=== PATIENT | male | born 1975 | race African-American/Black ===

== ENCOUNTER 2016-12-04 15:21 | Emergency (ER) | payer OTHER ==
[~2016-12-04] VITALS: Wt 100.0 kg
[~2016-12-04 15:21] MED LIST: HYDR-906 PO; METO10TA92 PO; MYL80 PO; ONDA4TAB14 PO; OXYC-209 PO; PANT40TA4 PO
[2016-12-04] MEDS ORDERED: ONDANSETRON 4 MG INJ IV STA (17:30)
[2016-12-04] MEDS ORDERED: morphine 4 MG/ML VIAL IV STA (17:30)
[2016-12-04] MEDS ORDERED: SOD CHLORIDE 0.9% 1,000 ML IV STA (17:30)
[2016-12-04 17:52] LABS: BASOPHILS % 0.3 % (0.0-2.0); EOSINOPHILS # 0.1 10^3/ul (0.0-0.5); EOSINOPHILS % 0.9 % (0.0-7.0); HEMATOCRIT 45.8 % (42.0-52.0); LYMPHOCYTES # 1.7 10^3/ul (0.8-2.9); LYMPHOCYTES % 17.6 % (15.0-51.0); MEAN CORPUSCULAR HEMOGLOBIN 29.5 pg (29.0-33.0); MEAN CORPUSCULAR HGB CONC 32.8 g/dl (32.0-37.0); MEAN CORPUSCULAR VOLUME 89.8 fl (82.0-101.0); MEAN PLATELET VOLUME 6.8 fl (7.4-10.4); MONOCYTE # 0.1 10^3/ul (0.3-0.9); MONOCYTES % 0.9 % (0.0-11.0); NEUTROPHIL # 7.6 10^3/ul (1.6-7.5); NEUTROPHILS % 80.3 % (39.0-77.0); PLATELET COUNT 402 10^3/UL (140-440); RED CELL DISTRIBUTION WIDTH 17.6 % (11.5-14.5); UNCORRECTED WBC 9.4 10^3/ul (4.8-10.8); WHITE BLOOD COUNT 9.4 10^3/ul (4.8-10.8)
[2016-12-04 17:59] LABS: CONDITION 1; INR 0.99; LH ANALYZER COMMENTS 1; PROTIME 13.1 Sec (12.2-14.2)
[2016-12-04 18:01] LABS: ALBUMIN 4.5 g/dl (3.3-4.9)
[2016-12-04 18:02] LABS: POTASSIUM 4.6 mmol/L (3.5-5.1)
[2016-12-04 18:04] LABS: BILIRUBIN,INDIRECT 0.8 mg/dl (0-1.1); BILIRUBIN,TOTAL 0.8 mg/dl (0.2-1.3); CREATININE 0.92 mg/dl (0.61-1.24)
[2016-12-04 18:05] LABS: CALCIUM 9.7 mg/dl (8.4-10.2)
[2016-12-04] MEDS ORDERED: HYDROmorphONE 1 MG/ML SYG IV STA (18:36)
[2016-12-04] MEDS ORDERED: FAMO40TA52 PO (18:47)
[2016-12-04] MEDS ORDERED: ONDA4TAB8 PO (18:47)
[2016-12-04] MEDS ORDERED: IBUP-1542 PO (18:47)
[2016-12-04] MEDS ORDERED: MAG355OR14 PO (18:47)
--- NOTE | 2016-12-04 18:50 | ERD ---
ER Documentation Chief Complaint Date/Time DATE: 12/04/16 TIME: 18:49 Chief Complaint abdominal pain for the past 2 days. vomiting. no diarrhea HPI 41-year-old man presents with sharp epigastric abdominal pain for the last 2 days associated with some nausea and one episode of clear nonbloody nonbilious emesis. He has had similar episodes in the past has a history of alcoholism, alcoholic gastritis, and recurrent pancreatitis. He denies blood per rectum or melena, no chest pain or shortness of breath, no trauma, no headache or blurry vision, no fevers or chills. Patient denies diarrhea. Patient admits to recent alcohol use and drinks daily. Patient denies withdrawals. ROS All systems reviewed and are negative except as per history of present illness. Medications Home Meds Active Scripts Ibuprofen* (Motrin*) 600 Mg Tab, 600 MG PO Q8 for PAIN AND/OR INFLAMMATION, #30 TAB Prov:REYNALDO ALEMAN MD 12/04/16 Ondansetron Hcl* (Zofran*) 4 Mg Tablet, 4 MG PO Q8H Y for NAUSEA AND/OR VOMITING , #20 TAB Prov:REYNALDO ALEMAN MD 12/04/16 Famotidine* (Famotidine*) 40 Mg Tablet, 40 MG PO HS, #30 TAB Prov:REYNALDO ALEMAN MD 12/04/16 Mag Hydrox/Al Hydrox/Simeth (Maalox Advanced Suspension) 355 Ml Oral.susp, 2 TSP PO TID for PAIN, #24 OZ Prov:REYNALDO ALEMAN MD 12/04/16 Ondansetron (Ondansetron Odt) 4 Mg Tab.rapdis, 4 MG PO Q8 Y for NAUSEA AND/OR VOMITING, #30 TAB Prov:JOSESITO GOODEN NP 10/28/16 Hydrocodone/Acetaminophen ([place] 5-325 Tablet) 1 Each Tablet, 1 TAB PO Q6H Y for PAIN, #20 TAB Prov:JOSESITO GOODEN NP 10/28/16 Oxycodone HCl/Acetaminophen (Percocet 10-325 mg Tablet) 1 Each Tablet, 1 EACH PO Q8 Y for SEVERE PAIN LEVEL 7-10, #30 TAB Prov:ANGELA CASON MD 10/11/16 Pantoprazole (Protonix) 40 Mg Tabec, 40 MG PO DAILY, #30 TAB Prov:ANGELA CASON MD 10/11/16 Discontinued Scripts Simethicone* (Mylicon*) 80 Mg Tab, 80 MG PO BID, #60 TAB Prov:ANGELA CASON MD 10/11/16 Metoclopramide* (Reglan*) 10 Mg Tablet, 10 MG PO Q6H Y for NAUSEA AND OR VOMITING, #30 TAB Prov:ANGELA CASON MD 10/11/16 Allergies Allergies: Coded Allergies: No Known Allergy (Unverified , 12/04/16) PMhx/Soc Chronic recurrent abdominal pain, alcohol abuse, alcoholic gastritis, cocaine abuse, previous pancreatitis, recent MRCP which was negative for CBD stone History of Surgery: Yes (LT HEEL, LT WRIST, NOSE SX) Anesthesia Reaction: No Hx Neurological Disorder: No Hx Respiratory Disorders: No Hx Cardiac Disorders: No Hx Psychiatric Problems: Yes (ANXIETY) Hx Miscellaneous Medical Probl: Yes (PANCREATITIS, ANXIETY, ALCOHOLISM) Hx Alcohol Use: Yes (FEW DAYS AGO, UNKNOWN ) Hx Substance Use: Yes (ALCOHOL ) Hx Tobacco Use: Yes Smoking Status: Current every day smoker FmHx Family History: No diabetes Physical Exam Vitals Vital Signs Date Time Temp Pulse Resp B/P Pulse Ox O2 Delivery O2 Flow Rate FiO2 12/04/16 18:30 97.8 97 20 138/107 97 12/04/16 15:27 97.8 88 20 168/118 100 Physical Exam GENERAL: Well-developed, well-nourished, well-hydrated, in no apparent distress , looks nontoxic in appearance HEENT: Moist mucous membranes, pink conjunctiva, no cervical spine tenderness or step-off deformities, no goiter, no jaundice or icterus, extraocular movements intact without pain. No submandibular induration, and no pharyngeal erythema NEURO: Alert and oriented 3, cranial nerves II through XII intact bilaterally, pupils equal round reactive to light, no focal deficits or facial asymmetry, sensation intact distally Strength 5/5 in upper and lower extremities bilaterally CARDIAC: Regular rate and rhythm, no murmurs rubs or gallops LUNGS: Clear bilaterally no wheezing crackles or stridor ABDOMEN: Soft nontender, no guarding, no rigidity, no rebound, no psoas sign no obturator sign. Normoactive bowel sounds SKIN: Warm and dry to touch, no abrasions, contusions, or hematomas, no lacerations, no ecchymosis, no target lesions, and without ulcers EXTREMITIES: No clubbing cyanosis or edema, calves are bilaterally symmetrical, no Homans sign, no popliteal cord sign. Distal pulses equal and bilateral PSYCH: Normal affect without agitation or irritability Result Diagram: 12/04/16 1730 12/04/16 1730 Results 24 hrs Laboratory Tests Test 12/04/16 17:30 Alanine Aminotransferase (ALT/SGPT) 24IU/L Albumin 4.5g/dl Albumin/Globulin Ratio 1.00 Alkaline Phosphatase 190IU/L Anion Gap 20 Aspartate Amino Transf (AST/SGOT) 25IU/L Basophils # 0.010^3/ul Basophils % 0.3% Blood Morphology Comment Blood Urea Nitrogen 10mg/dl Calcium Level 9.7mg/dl Carbon Dioxide Level 26mmol/L Chloride Level 99mmol/L Creatinine 0.92mg/dl Direct Bilirubin 0.00mg/dl Eosinophils # 0.110^3/ul Eosinophils % 0.9% Globulin 4.50g/dl Glucose Level 122mg/dl Hematocrit 45.8% Hemoglobin 15.0g/dl INR International Normalized Ratio 0.99 Indirect Bilirubin 0.8mg/dl Lipase 383U/L Lymphocytes # 1.710^3/ul Lymphocytes % 17.6% Mean Corpuscular Hemoglobin 29.5pg Mean Corpuscular Hemoglobin Concent 32.8g/dl Mean Corpuscular Volume 89.8fl Mean Platelet Volume 6.8fl Monocytes # 0.110^3/ul Monocytes % 0.9% Neutrophils # 7.610^3/ul Neutrophils % 80.3% Nucleated Red Blood Cells # 0.010^3/ul Nucleated Red Blood Cells % 0.0/100WBC Platelet Count 97248^3/UL Potassium Level 4.6mmol/L Prothrombin Time 13.1Sec Prothrombin Time Ratio 1.0 Red Blood Count 5.1010^6/ul Red Cell Distribution Width 17.6% Sodium Level 140mmol/L Total Bilirubin 0.8mg/dl Total Protein 9.0g/dl White Blood Count 9.410^3/ul Current Medications Medications (Trade) Dose Ordered Sig/Mary Route PRN Reason Start Time Stop Time Status Last Admin Dose Admin Sodium Chloride (NS) 1,000 ml @ 1,000 mls/hr Q1H STAT IV 12/04/16 17:30 12/04/16 18:29 DC 12/04/16 17:48 Morphine Sulfate (morphine) 4 mg ONCE STAT IV 12/04/16 17:30 12/04/16 17:31 DC 12/04/16 17:47 Ondansetron HCl (Zofran Inj) 4 mg ONCE STAT IV 12/04/16 17:30 12/04/16 17:31 DC 12/04/16 17:48 Hydromorphone HCl (Dilaudid) 0.5 mg ONCE STAT IV 12/04/16 18:36 12/04/16 18:37 DC 12/04/16 18:45 Procedures/MDM An IV line was established patient was placed on nurse monitoring rhythm strip revealed a sinus rhythm at about 80 bpm with upright P and T waves. Patient was afebrile. I administered 1 L normal saline intravenously, morphine 4 mg IV, Zofran 4 mg IV with improvement. I later administered hydromorphone 0.5 mg IV 1 with complete resolution of pain. CBC was unremarkable, electrolytes are normal, liver function tests revealed mildly elevated alkaline phosphatase at 190 otherwise there were normal, coagulation profile was normal. Lipase elevated at 383. I reviewed his previous medical workups, imaging studies, and medical chart. At this level of lipase elevation he can be managed as an outpatient I recommended alcohol cessation and follow-up with his PMD as well as strict adherence to his prescriptions. Differential diagnoses considered, included but not limited to acute coronary syndrome, pulmonary embolism, aortic dissection, abdominal aortic aneurysm, sepsis, stroke, meningitis, encephalitis, pneumonia, appendicitis, cholecystitis , bowel obstruction, pyelonephritis, nephrolithiasis, cystitis, as well as metabolic, hematologic, and electrolyte abnormalities. As well as abscess, cellulitis, fractures, and dislocations. Patient feels much better at this time, and vital signs are normal, symptoms have improved. I did give strict instructions to return to the ED if symptoms continue or worsen, patient will otherwise follow-up with primary care physician. Patient understood instructions and agreed to plan. Departure Diagnosis: Primary Impression: Abdominal pain Abdominal location: epigastric Qualified Code: R10.13 - Epigastric pain Additional Impressions: Alcoholism Hypertension Hypertension type: essential hypertension Qualified Code: I10 - Essential hypertension Elevated lipase Condition: Good Patient Instructions: Abdominal Pain REYNALDO ALEMAN MD Dec 04, 2016 18:50
[2016-12-04 20:14] VITALS: BP 143/100; PULSE 80; RESP 20; TEMP 97.8
== END 2016-12-04 20:15 | disposition home or self-care (01) ==
LOC: E/R 15:21
DX: R10.13 Epigastric pain (principal); F10.20 Alcohol dependence, uncomplicated; I10 Essential (primary) hypertension; R74.8 Abnormal levels of other serum enzymes; F17.210 Nicotine dependence, cigarettes, uncomplicated; R11.2 Nausea with vomiting, unspecified; R40.2142 Coma scale, eyes open, spontaneous, at arrival to emergency department; R40.2252 Coma scale, best verbal response, oriented, at arrival to emergency department; R40.2362 Coma scale, best motor response, obeys commands, at arrival to emergency department
CPT/HCPCS: 36415; 80053; 83690; 85025; 85610; 96374; 96375; J1170; J2270; J2405; J7030; Z7502

== ENCOUNTER 2016-12-21 05:14 | Inpatient (IN) | payer OTHER ==
[~2016-12-21] VITALS: Ht 182.9 cm; Wt 96.0 kg
[~2016-12-21 05:14] MED LIST changes: +FAMO40TA52 PO; +IBUP-1542 PO; +MAG355OR14 PO; -METO10TA92 PO; -MYL80 PO; +ONDA4TAB8 PO
[2016-12-21] MEDS ORDERED: morphine 4 MG/ML VIAL IV STA ×2 (06:59→07:36)
[2016-12-21] MEDS ORDERED: ONDANSETRON 4 MG INJ IV STA (06:59)
--- NOTE | 2016-12-21 07:08 | ERD ---
ER Documentation Chief Complaint Date/Time DATE: 12/21/16 TIME: 07:05 Chief Complaint RUQ abd pain2 nhours ago, hx- pancreatitis (EDILMA CALLAHAN PA-C) HPI This 41-year-old male who presents the emergency department today complaining of abdominal pain for the past 4 hours. Patient states he has had some nausea and vomiting. States he has a history of Tegretol at. States he drinks alcohol uses marijuana as well as cocaine. He has not taken any medication for the pain stating he did not have any at home. States he has not followed up with a doctor. Denies any fevers or chills, chest pain or shortness of breath. (EDILMA CALLAHAN PA-C) ROS All systems reviewed and are negative except as per history of present illness. (EDILMA CALLAHAN PA-C) Medications Home Meds Active Scripts Ibuprofen* (Motrin*) 600 Mg Tab, 600 MG PO Q8 for PAIN AND/OR INFLAMMATION, #30 TAB Prov:REYNALDO ALEMAN MD 12/04/16 Ondansetron Hcl* (Zofran*) 4 Mg Tablet, 4 MG PO Q8H Y for NAUSEA AND/OR VOMITING , #20 TAB Prov:REYNALDO ALEMAN MD 12/04/16 Famotidine* (Famotidine*) 40 Mg Tablet, 40 MG PO HS, #30 TAB Prov:REYNALDO ALEMAN MD 12/04/16 Mag Hydrox/Al Hydrox/Simeth (Maalox Advanced Suspension) 355 Ml Oral.susp, 2 TSP PO TID for PAIN, #24 OZ Prov:REYNALDO ALEMAN MD 12/04/16 Ondansetron (Ondansetron Odt) 4 Mg Tab.rapdis, 4 MG PO Q8 Y for NAUSEA AND/OR VOMITING, #30 TAB Prov:JOSESITO GOODEN NP 10/28/16 Hydrocodone/Acetaminophen ([place] 5-325 Tablet) 1 Each Tablet, 1 TAB PO Q6H Y for PAIN, #20 TAB Prov:JOSESITO GOODEN NP 10/28/16 Oxycodone HCl/Acetaminophen (Percocet 10-325 mg Tablet) 1 Each Tablet, 1 EACH PO Q8 Y for SEVERE PAIN LEVEL 7-10, #30 TAB Prov:ANGELA CASON MD 10/11/16 Pantoprazole (Protonix) 40 Mg Tabec, 40 MG PO DAILY, #30 TAB Prov:ANGELA CASON MD 10/11/16 Allergies Allergies: Coded Allergies: No Known Allergy (Unverified , 12/04/16) PMhx/Soc History of Surgery: Yes (LT HEEL, LT WRIST, NOSE SX) Anesthesia Reaction: No Hx Neurological Disorder: No Hx Respiratory Disorders: No Hx Cardiac Disorders: No Hx Psychiatric Problems: Yes (ANXIETY) Hx Miscellaneous Medical Probl: Yes (PANCREATITIS, ANXIETY, ALCOHOLISM) Hx Alcohol Use: Yes (FEW DAYS AGO, UNKNOWN ) Hx Substance Use: Yes (ALCOHOL ) Hx Tobacco Use: Yes (EDILMA CALLAHAN PA-C) Physical Exam Vitals Vital Signs Date Time Temp Pulse Resp B/P Pulse Ox O2 Delivery O2 Flow Rate FiO2 12/21/16 05:32 98.4 109 20 132/98 98 (LYDIA SMALLWOOD) Physical Exam Const: No acute distress Head: Atraumatic Eyes: Normal Conjunctiva ENT: Normal External Ears, Nose and Mouth. Neck: Full range of motion..~ No meningismus. Resp: Clear to auscultation bilaterally Cardio: Regular rate and rhythm, no murmurs Abd: Soft, epigastric, right upper quadrant tenderness non distended. Normal bowel sounds are no right lower quadrant tenderness. No tenderness at McBurney' s. Skin: No petechiae or rashes Back: No midline or flank tenderness Ext: No cyanosis, or edema Neur: Awake and alert Psych: Normal Mood and Affect (EDILMA CALLAHAN PA-C) Result Diagram: 12/21/16 0710 12/21/16 0710 Results 24 hrs Laboratory Tests Test 12/21/16 07:05 12/21/16 07:10 Urine Bacteria FEW Urine Bilirubin 1+ Urine Clarity CLEAR Urine Color BROWN Urine Epithelial Cells MODERATE Urine Glucose NEGATIVE% Urine Hemoglobin 1+ Urine Ictotest NEGATIVE Urine Ketones 3+ Urine Leukocyte Esterase NEGATIVE Urine Microscopic RBC 0-2/HPF Urine Microscopic WBC 2-5/HPF Urine Mucus FEW Urine Nitrite NEGATIVE Urine Specific [place] >=1.030 Urine Total Protein 2+ Urine Urobilinogen 1.0 E.U./dL Urine pH 5.5 Alanine Aminotransferase (ALT/SGPT) 29IU/L Albumin 4.8g/dl Albumin/Globulin Ratio 1.02 Alkaline Phosphatase 219IU/L Anion Gap 25 Aspartate Amino Transf (AST/SGOT) 44IU/L Basophils # 0.010^3/ul Basophils % 0.1% Blood Morphology Comment Blood Urea Nitrogen 7mg/dl Calcium Level 10.0mg/dl Carbon Dioxide Level 23mmol/L Chloride Level 99mmol/L Creatinine 0.92mg/dl Direct Bilirubin 0.00mg/dl Eosinophils # 0.010^3/ul Eosinophils % 0.6% Globulin 4.70g/dl Glucose Level 125mg/dl Hematocrit 45.6% Hemoglobin 15.4g/dl Indirect Bilirubin 0.7mg/dl Lipase 902U/L Lymphocytes # 0.810^3/ul Lymphocytes % 10.3% Mean Corpuscular Hemoglobin 30.4pg Mean Corpuscular Hemoglobin Concent 33.7g/dl Mean Corpuscular Volume 90.1fl Mean Platelet Volume 7.4fl Monocytes # 0.310^3/ul Monocytes % 4.2% Neutrophils # 6.410^3/ul Neutrophils % 84.8% Nucleated Red Blood Cells # 0.010^3/ul Nucleated Red Blood Cells % 0.0/100WBC Platelet Count 26403^3/UL Potassium Level 3.7mmol/L Red Blood Count 5.0610^6/ul Red Cell Distribution Width 16.8% Sodium Level 143mmol/L Total Bilirubin 0.7mg/dl Total Protein 9.5g/dl White Blood Count 7.610^3/ul Current Medications Medications (Trade) Dose Ordered Sig/Mary Route PRN Reason Start Time Stop Time Status Last Admin Dose Admin Morphine Sulfate (morphine) 4 mg ONCE STAT IV 12/21/16 06:59 12/21/16 07:01 DC 12/21/16 07:17 Ondansetron HCl (Zofran Inj) 4 mg ONCE STAT IV 12/21/16 06:59 12/21/16 07:01 DC 12/21/16 07:17 Morphine Sulfate 4 mg 4 mg ONCE STAT IV 12/21/16 07:36 12/21/16 07:37 DC 12/21/16 07:44 Sodium Chloride (NS) 1,000 ml @ 1,000 mls/hr Q1H ONCE IV 12/21/16 08:30 12/21/16 09:29 12/21/16 08:46 Hydromorphone HCl (Dilaudid) 1 mg ONCE STAT IV 12/21/16 08:25 12/21/16 08:26 DC 12/21/16 08:47 (LYDIA SMALLWOOD) Procedures/MDM This is a 41-year-old male who presents to the emergency department today complaining of abdominal pain for the past 4 hours. Patient has a history of pancreatitis and chronic pancreatitis. He's been seen here in this emergency room 9 times in the past year for this abdominal pain. He has been seen multiple times in previous years prior to that. Given the patient's complaints and past history I obtain laboratory work as well as a right upper quadrant ultrasound. Patient has had an MRCP in the past and had a CT of the abdomen and pelvis noncontrast approximate 6 weeks ago. I do not feel the patient requires a repeat CT scan at this time. Patient does abuse cocaine and therefore did obtain an EKG. EKG read and interpreted by Dr. Smallwood. Rate [address] elevation. QT prolongation. Low suspicion of acute DC, PE, pericarditis Laboratory work shows an elevated white blood cell count. His platelets are within normal limits. He is not anemic. His alkaline phosphatase is 219. Liver functions otherwise normal. His glucose is within normal limits. Lipase is 902 UA is negative for infection. 3+ ketones. Ultrasound Symptoms at this time consistent with acute on chronic pancreatitis. Do not feel the patient requires a CT scan at this time. Patient was given Zofran and morphine here in the emergency department. Patient continued to complain of pain and was therefore given Dilaudid. He was also given IV fluids Discussed admission versus outpatient management with the patient and patient has indicated that he would like to be admitted. I discussed the patient with Dr. Smallwood and he will admit the patient. Any further documentation or orders will be placed by him or the admitting physician (EDILMA CALLAHAN PA-C) Patient seen in conjunction with MARK. Upon reevaluation, patient continues to have discomfort. Patient will require admission to the hospital for observation fluid pain control and further evaluation. (LYDIA SMALLWOOD) EDILMA CALLAHAN PA-C Dec 21, 2016 07:08 LYDIA SMALLWOOD Dec 21, 2016 09:30
[2016-12-21 07:35] LABS: BASOPHILS % 0.1 % (0.0-2.0); EOSINOPHILS % 0.6 % (0.0-7.0); HEMATOCRIT 45.6 % (42.0-52.0); HEMOGLOBIN 15.4 g/dl (14.0-18.0); LYMPHOCYTES # 0.8 10^3/ul (0.8-2.9); LYMPHOCYTES % 10.3 % (15.0-51.0); MEAN CORPUSCULAR HEMOGLOBIN 30.4 pg (29.0-33.0); MEAN CORPUSCULAR HGB CONC 33.7 g/dl (32.0-37.0); MEAN CORPUSCULAR VOLUME 90.1 fl (82.0-101.0); MEAN PLATELET VOLUME 7.4 fl (7.4-10.4); MONOCYTE # 0.3 10^3/ul (0.3-0.9); MONOCYTES % 4.2 % (0.0-11.0); NEUTROPHIL # 6.4 10^3/ul (1.6-7.5); NEUTROPHILS % 84.8 % (39.0-77.0); PLATELET COUNT 313 10^3/UL (140-440); RED BLOOD COUNT 5.06 10^6/ul (4.70-6.10); RED CELL DISTRIBUTION WIDTH 16.8 % (11.5-14.5); UNCORRECTED WBC 7.6 10^3/ul (4.8-10.8); WHITE BLOOD COUNT 7.6 10^3/ul (4.8-10.8)
[2016-12-21 07:36] LABS: CONDITION 1; LH ANALYZER COMMENTS 1
[2016-12-21 07:41] LABS: ALBUMIN 4.8 g/dl (3.3-4.9)
[2016-12-21 07:42] LABS: POTASSIUM 3.7 mmol/L (3.5-5.1)
[2016-12-21 07:44] LABS: ALBUMIN/GLOBULIN RATIO 1.02; BILIRUBIN,INDIRECT 0.7 mg/dl (0-1.1); BILIRUBIN,TOTAL 0.7 mg/dl (0.2-1.3); CREATININE 0.92 mg/dl (0.61-1.24); TOTAL PROTEIN 9.5 g/dl (6.1-8.1)
[2016-12-21 07:49] LABS: ADD UMIC YES; URINE BILIRUBIN (Dip) 1+ (NEGATIVE); URINE BLOOD (Dip) 1+ (NEGATIVE); URINE COLOR BROWN (YELLOW); URINE GLUCOSE (Dip) NEGATIVE (NEGATIVE); URINE KETONES (Dip) 3+ (NEGATIVE); URINE LEUKOCYTE ESTERASE (Dip) NEGATIVE (NEGATIVE); URINE NITRITE (Dip) NEGATIVE (NEGATIVE); URINE TOTAL PROTEIN (Dip) 2+ (NEGATIVE); URINE UROBILINOGEN (Dip) 1.0 E.U./dL (0.1-1.0)
[2016-12-21 08:21] LABS: BACTERIA,URINE FEW; MUCUS,URINE FEW; URINE RBCS 0-2 /HPF (0)
[2016-12-21 08:23] LABS: ICTOTEST NEGATIVE (NEGATIVE)
[2016-12-21] MEDS ORDERED: HYDROmorphONE 1 MG/ML SYG IV STA ×2 (08:25→10:51)
[2016-12-21] MEDS ORDERED: SOD CHLORIDE 0.9% 1,000 ML IV ONE (08:30)
--- NOTE | 2016-12-21 08:59 | RADRPT ---
PROCEDURE: US Abdomen (Right upper quadrant) CLINICAL INDICATION: Abdominal pain. TECHNIQUE: Multiple real-time longitudinal and transverse images were acquired of the patient's ri t upper quadrant utilizing a curved array transducer. COMPARISON: MRI, 10/08/2016. FINDINGS: Liver there is enlarged and demonstrates diffuse increase in parenchymal echogenicity. No focal burt er mass. Portal vein demonstrates hepatopetal flow. Gallbladder demonstrates suggestion of a possible tiny stones. There is no gallbladder wall thicken ing or pericholecystic fluid. The extrahepatic biliary system is mildly dilated. Pancreas is poorly evaluated. Right kidney demonstrates no hydronephrosis or nephrolithiasis. There is a cystic lesion in the rig ht kidney measuring up to 2.2 cm No ascites. Proximal aorta and IVC are unremarkable. MEASUREMENTS: Liver: 20.8 cm Common Duct: 0.7 cm Right Kidney: 10.6 cm IMPRESSION: Limited examination due to patient's constant movement during examination, as per technologist. Hepatomegaly with hepatic steatosis. Suggestion of tiny stones in the gallbladder. There is borderline to mild extrahepatic bile duct di latation. Recommend correlation with LFTs to exclude cholestasis. Right renal cystic lesion that cannot be confidently characterized as a simple cyst on this examinat ion. However, this lesion is not clearly identified on the prior MRI of 10/08/2016 and is of doubtf ul clinical significance. RPTAT: EE .Maikel Jane MD, Date Time Electronically viewed and signed by .Maikel Jane MD, on 12/21/2016 09:03 .C/
[2016-12-21] MEDS ORDERED: KETOROLAC 30 MG INJ IV STA (10:18)
[2016-12-21 12:00] VITALS: TEMP 98.3
[2016-12-21] MEDS ORDERED: hydrALAzine 20 MG INJ IV ONE (12:00)
[2016-12-21 13:08] VITALS: BP 189/106; PULSE 98; RESP 18
[2016-12-21 13:11] VITALS: Ht 182.9 cm; Wt 96.0 kg
[2016-12-21] MEDS ORDERED: NACL 0.9% 3 ML SYG IV SCH (13:30)
[2016-12-21] MEDS ORDERED: NITROGLYCERIN (SL) 0.4 MG TAB SL PRN (13:30)
[2016-12-21] MEDS ORDERED: NA PHOSPHATE/BIPHOS 133 ML ENEMA PR PRN (13:30)
[2016-12-21] MEDS ORDERED: morphine 2 MG INJ IV ONE (13:30)
[2016-12-21] MEDS ORDERED: hydrALAzine 20 MG INJ IV PRN (13:30)
[2016-12-21] MEDS ORDERED: LORAZEPAM 2 MG INJ IV PRN (13:30)
[2016-12-21] MEDS ORDERED: MAGNESIUM HYDROXIDE 30ML CUP PO PRN (13:30)
[2016-12-21] MEDS ORDERED: ALBUTEROL/IPRATROPIUM (NEB) 3 ML AMP HHN PRN (13:30)
[2016-12-21] MEDS ORDERED: DOCUSATE SODIUM 100 MG CAP PO PRN (13:30)
[2016-12-21] MEDS ORDERED: ONDANSETRON 4 MG INJ IV PRN (13:30)
[2016-12-21] MEDS ORDERED: ACETAMINOPHEN 325 MG TAB PO PRN (13:30)
[2016-12-21] MEDS: HYDROCODONE/APAP (5/325) TAB PO PRN (13:46)
[2016-12-21] MEDS: CHLORDIAZEPOXIDE 25 MG CAP PO SCH ×2 (13:49→20:34)
[2016-12-21] MEDS: SOD CHLORIDE 0.9% 1,000 ML IV SCH (13:56)
[2016-12-21] MEDS: HYDROmorphONE 1 MG/ML SYG IV PRN ×2 (14:14→20:17)
[2016-12-21 15:10] VITALS: BP 170/102; PULSE 84; RESP 18
[2016-12-21] MEDS: LORAZEPAM 2 MG INJ IV PRN ×2 (15:51→20:22)
--- NOTE | 2016-12-21 16:00 | HP ---
DATE OF ADMISSION: 12/21/2016 IDENTIFICATION: A 41-year-old male. CHIEF COMPLAINT: Abdominal pain. HISTORY OF PRESENT ILLNESS: A 41-year-old male with multiple admissions in the past for alcohol abu se, pancreatitis in the past, history of gallstones who presents again with abdominal pain that has been going on for the last few days. He has had some nonbilious, nonbloody nausea/vomiting symptoms . When he came in today, his lipase was again found to be elevated in the ER; this time it is 902. No dizziness or loss of consciousness. He says his last drink was also yesterday, and there is a s lillian suspicion of alcohol intoxication again. The patient was last here at our hospital from 10/08 to 10/11/2016 for acute pancreatitis secondary to alcohol use as well. PAST MEDICAL HISTORY: As stated above. ALLERGIES: NO KNOWN DRUG ALLERGIES. HOME MEDICATIONS: 1. [place] 5/325 q.6 p.r.n. 2. Motrin 600 mg q.8 hours. 3. Percocet 10/325 q.8 p.r.n. 4. Famotidine 40 mg at bedtime. 5. Maalox t.i.d. 6. Zofran 4 mg q.8 p.r.n. 7. Protonix 40 mg daily. PAST SURGICAL HISTORY: He has had a fracture repair. He has also had some kind of procedure on his gallbladder in the past, and also surgery for deviated septum. FAMILY HISTORY: Noncontributory. SOCIAL HISTORY: He says his last alcohol drink was yesterday. He has a prior history of alcohol ab use, prior history of smoking. Denies any current IV drug abuse, although he has had a history of P CP and cocaine use in the past. PHYSICAL EXAMINATION VITAL SIGNS: T-max 98.3, pulse of 84 to 101, respirations 18 to 20, blood pressure is 159 to 189 sy stolic over 110 to 106 diastolic, satting at 97% on room air. GENERAL: The patient is lying in bed complaining of abdominal pain in mild distress. HEENT: Pupils equal, round, react to light. Extraocular muscles intact. NECK: Supple, no thyromegaly. LUNGS: Clear to auscultation bilaterally. CARDIOVASCULAR: S1, S2 heard. No rubs or gallops. ABDOMEN: Mild tenderness to palpation in the epigastric area. No rebound or guarding. Otherwise s oft. Normal bowel sounds. MUSCULOSKELETAL: Normal lower extremity edema bilaterally. NEUROLOGIC: No focal deficits. LABORATORIES: The comprehensive metabolic panel is normal including normal bilirubin levels, but hi s lipase is 902. CBC is normal. U-tox is pending. IMAGING: Gallbladder ultrasound shows hepatomegaly with hepatic steatosis, possible tiny stones in the gallbladder, borderline to mild extrahepatic bile duct dilatation. ASSESSMENT AND PLAN: A 41-year-old male who once again comes in with abdominal pain secondary to al coholic pancreatitis. 1. Abdominal pain secondary to alcoholic pancreatitis. Admit him. Keep him n.p.o. Give him IV fl uids. Cautious pain control medications as well. Check TSH, A1c, and lipid panel. His LFTs are no rmal. Consider MRCP or GI consult if his symptoms worsen. 2. Alcohol intoxication. Put him on Librium with banana bag; also Ativan p.r.n. 3. Gastrointestinal prophylaxis: PPI. 4. Deep venous thrombosis prophylaxis: Heparin subcutaneously. Dictated By: JEFF BO/LEA Conf#: [id number] DID#: [id number]
[2016-12-21 16:30] VITALS: BP 152/78; PULSE 78; RESP 18
[2016-12-21] MEDS: morphine 2 MG INJ IV PRN (17:05)
[2016-12-21 20:25] VITALS: BP 171/105; RESP 18
[2016-12-21] MEDS: AL HYDROX/MG HYDROX/SIMETH 30 ML CUP PO SCH (20:34)
[2016-12-21] MEDS: HEPARIN 5,000 UNIT/0.5 ML SYG SC SCH (20:40)
[2016-12-21 23:00] VITALS: BP 145/81; PULSE 97; RESP 17
[2016-12-22] MEDS: SOD CHLORIDE 0.9% 1,000 ML IV SCH ×3 (00:26→17:00)
[2016-12-22] MEDS: morphine 2 MG INJ IV PRN ×5 (00:26→20:54)
[2016-12-22] MEDS: HYDROCODONE/APAP (5/325) TAB PO PRN (01:02)
[2016-12-22] MEDS: HYDROmorphONE 1 MG/ML SYG IV PRN ×2 (02:13→08:59)
[2016-12-22] MEDS: PANTOPRAZOLE 40 MG INJ IV SCH (05:29)
[2016-12-22 06:27] LABS: BASOPHILS % 0.3 % (0.0-2.0); EOSINOPHILS % 0.5 % (0.0-7.0); HEMATOCRIT 38.2 % (42.0-52.0); LYMPHOCYTES # 0.8 10^3/ul (0.8-2.9); LYMPHOCYTES % 13.4 % (15.0-51.0); MEAN CORPUSCULAR HGB CONC 34.1 g/dl (32.0-37.0); MEAN CORPUSCULAR VOLUME 90.9 fl (82.0-101.0); MEAN PLATELET VOLUME 7.9 fl (7.4-10.4); MONOCYTE # 0.5 10^3/ul (0.3-0.9); MONOCYTES % 8.3 % (0.0-11.0); NEUTROPHIL # 4.7 10^3/ul (1.6-7.5); NEUTROPHILS % 77.5 % (39.0-77.0); PLATELET COUNT 209 10^3/UL (140-440); RED CELL DISTRIBUTION WIDTH 16.9 % (11.5-14.5)
[2016-12-22 06:39] LABS: CONDITION 1; LH ANALYZER COMMENTS 1; POTASSIUM 3.7 mmol/L (3.5-5.1)
[2016-12-22 06:41] LABS: CREATININE 0.64 mg/dl (0.61-1.24)
[2016-12-22 06:42] LABS: CHOL/HDL RATIO 5.5 RATIO; MAGNESIUM 2.1 mg/dl (1.7-2.5); PHOSPHORUS 2.5 mg/dl (2.5-4.9)
[2016-12-22] MEDS: LORAZEPAM 2 MG INJ IV PRN (06:50)
[2016-12-22 07:06] LABS: THYROID STIMULATING HORMONE 0.568 MIU/L (0.465-4.680)
[2016-12-22 07:34] VITALS: BP 170/104; RESP 18
[2016-12-22] MEDS: AL HYDROX/MG HYDROX/SIMETH 30 ML CUP PO SCH ×3 (09:01→20:53)
[2016-12-22] MEDS: CHLORDIAZEPOXIDE 25 MG CAP PO SCH ×3 (09:02→20:53)
[2016-12-22] MEDS: MULTIVITAMINS 10 ML, THIAMINE 100 MG, FOLIC ACID 1 MG in SOD CHLORIDE 0.9% 1,000 ML IVPB SCH (09:02)
--- NOTE | 2016-12-22 09:36 | PN ---
Date/Time of Note Date/Time of Note DATE: 12/22/16 TIME: 09:33 Assessment/Plan VTE Prophylaxis VTE Prophylaxis Intervention: heparin Lines/Catheters IV Catheter Type (from Nrs): Peripheral IV Urinary Cath still in place: No Assessment/Plan Assessment/Plan A 41-year-old male who once again comes in with abdominal pain secondary to alcoholic pancreatitis. 1. Abdominal pain secondary to alcoholic pancreatitis. - continue with NPO, IVF, morphine only for pain, trend lipase 2. Alcohol intoxication. Put him on Librium with banana bag; also Ativan p.r.n. 3. Gastrointestinal prophylaxis: PPI. 4. Deep venous thrombosis prophylaxis: Heparin subcutaneously. dispo - f/u lipase levels, wean off of pain medications, social work consult. this progress note took greater than 40 minutes to complete Subjective 24 Hr Interval Summary Free Text/Dictation Patient is complaining of abdominal pain. When I arrived in the room, the patient was sleeping comfortably. I spoke to him about his medications and pain management. He understood that only morphine, not dilaudid will be given. Otherwise spoke to the nurse about the care plan. 20 minutes spent. Exam/Review of Systems Vital Signs Vitals Vital Signs Date Time Temp Pulse Resp B/P Pulse Ox O2 Delivery O2 Flow Rate FiO2 12/22/16 07:34 98.8 90 18 170/104 96 12/21/16 23:00 Room Air Intake and Output 12/21/16 12/21/16 12/22/16 15:00 23:00 07:00 Intake Total 350 ml 1100 ml Output Total 700 ml 1200 ml Balance -350 ml -100 ml Exam Gen Corina: mild distress 2/2 to abdominal pain, AAOx4 HEENT: NC/AT, PERRLA, EOMI, no pharyngeal erythema, no tonsillar exudates, no lymphadenopathy, no JVD, no carotid bruits NECK: supple, no thyromegaly THORAX: symmetrical, no obvious deformities CV: S1S2, RRR, no M/G/R Lungs: CTAB no W/C/R/R Abd: soft, NT/ND, +BS, no rebound, no guarding, neg HSM EXT: no edema, no ecchymosis, no clubbing, FROM Neuro: CN II-XII grossly intact, no focal deficits Psych: fair mood and affect Skin: C/D/I Results Result Diagram: 12/22/16 0500 12/22/16 0500 Results 24 hrs Laboratory Tests Test 12/22/16 05:00 Anion Gap 15 # Basophils # 0.0 Basophils % 0.3 Blood Morphology Comment Blood Urea Nitrogen 5 L Calcium Level 9.0 Carbon Dioxide Level 26 Chloride Level 99 Cholesterol Level 205 H Cholesterol/HDL Ratio 5.5 Creatinine 0.64 Eosinophils # 0.0 Eosinophils % 0.5 Glucose Level 120 HDL Cholesterol 37 Hematocrit 38.2 L Hemoglobin 13.0 L Hemoglobin A1c 5.3 LDL Cholesterol, Calculated 136 Lipase 924 H Lymphocytes # 0.8 Lymphocytes % 13.4 L Magnesium Level 2.1 Mean Corpuscular Hemoglobin 31.0 Mean Corpuscular Hemoglobin Concent 34.1 Mean Corpuscular Volume 90.9 Mean Platelet Volume 7.9 Monocytes # 0.5 Monocytes % 8.3 Neutrophils # 4.7 Neutrophils % 77.5 H Nucleated Red Blood Cells # 0.0 Nucleated Red Blood Cells % 0.0 Phosphorus Level 2.5 Platelet Count 209 # Potassium Level 3.7 Red Blood Count 4.20 L Red Cell Distribution Width 16.9 H Sodium Level 136 Thyroid Stimulating Hormone (TSH) 0.568 Triglycerides Level 162 H White Blood Count 6.0 # Medications Medications Current Medications Ondansetron HCl (Zofran Inj) 4 mg Q6H PRN IV NAUSEA AND/OR VOMITING; Start 12/21 at 13:30 Acetaminophen (Tylenol Tab) 650 mg Q6H PRN PO PAIN LEVEL 1-3 OR FEVER; Start at 13:30 Acetaminophen/ Hydrocodone Bitart ([place] (5/325)) 1 tab Q6H PRN PO MODERATE PAIN LEVEL 4-6 Last administered on 12/22/16 01:02; Admin Dose 1 TAB; Start 12/21 at 13:30 Morphine Sulfate (morphine) 2 mg Q4H PRN IV SEVERE PAIN LEVEL 7-10 Last administered on 12/22/16 05:29; Admin Dose 2 MG; Start 12/21/16 at 14:11 Docusate Sodium (Colace) 100 mg Q12H PRN PO CONSTIPATION; Start 12/21/16 at 13: 30 Magnesium Hydroxide (Milk Of Mag) 30 ml DAILY PRN PO CONSTIPATION; Start at 13:30 Sodium Biphosphate/ Sodium Phosphate (Fleet Enema) 133 ml DAILY PRN [place] CONSTIPATION; Start 12/21/16 at 13:30 Pantoprazole (Protonix Iv) 40 mg DAILY@06 IV Last administered on 12/22/16 05: 29; Admin Dose 40 MG; Start 12/22/16 at 06:00 Heparin Sodium (Porcine) 5000 unit 5,000 unit Q12 SC Last administered on 20:40; Admin Dose 5,000 UNIT; Start 12/21/16 at 21:00 Sodium Chloride (NS) 1,000 ml @ 100 mls/hr Q10H IV Last administered on 00:26; Admin Dose 100 MLS/HR; Start 12/21/16 at 13:21 Hydralazine HCl (Apresoline) 10 mg Q6H PRN IV ELEVATED BLOOD PRESSURE; Start at 13:30 Clonidine (Catapres) 0.1 mg Q6H PRN PO ELEVATED BLOOD PRESSURE Last administered on 12/21/16 15:09; Admin Dose 0.1 MG; Start 12/21/16 at 13:30 Nitroglycerin (Nitroglycerin (Sl Tab) 0.4 Mg) 1 tab Q5M PRN SL ANGINA; Start at 13:30 Al Hydrox/Mg Hydrox/Simethicone (Mag-Al Plus) 10 ml TID PO Last administered on 12/22/16 09:01; Admin Dose 10 ML; Start 12/21/16 at 21:00 Chlordiazepoxide 50 mg 50 mg TID PO Last administered on 12/22/16 09:02; Admin Dose 50 MG; Start 12/21/16 at 13:45 Multivitamins/ Thiamine HCl/ Folic Acid/Sodium Chloride (Mvi-12 Adult/ Vitamin B1/Folic Acid/NS) 1,011.2 ml @ 125 mls/ hr DAILY@09 IVPB Last administered on 12/22/16 09:02; Admin Dose 125 MLS/HR; Start 12/22/16 at 09:00 Hydromorphone HCl (Dilaudid) 0.5 mg Q6H PRN IV PAIN Last administered on 08:59; Admin Dose 0.5 MG; Start 12/21/16 at 14:30; Stop 12/22/16 at 13:30 Lorazepam (Ativan) 1 mg Q1H PRN IV ANXIETY Last administered on 12/22/16t 06:50 ; Admin Dose 1 MG; Start 12/21/16 at 14:30 SHELTON REYES MD Dec 22, 2016 09:36
[2016-12-22] MEDS: HEPARIN 5,000 UNIT/0.5 ML SYG SC SCH ×2 (09:37→20:53)
[2016-12-22 20:00] VITALS: BP 144/79; PULSE 95; RESP 18
[2016-12-23] MEDS: morphine 2 MG INJ IV PRN ×3 (00:58→08:58)
[2016-12-23] MEDS: PANTOPRAZOLE 40 MG INJ IV SCH (05:00)
[2016-12-23] MEDS: SOD CHLORIDE 0.9% 1,000 ML IV SCH ×3 (05:00→18:03)
[2016-12-23 05:49] LABS: BASOPHILS % 0.3 % (0.0-2.0); EOSINOPHILS # 0.1 10^3/ul (0.0-0.5); EOSINOPHILS % 1.8 % (0.0-7.0); HEMATOCRIT 34.7 % (42.0-52.0); HEMOGLOBIN 11.9 g/dl (14.0-18.0); LYMPHOCYTES # 1.6 10^3/ul (0.8-2.9); LYMPHOCYTES % 28.5 % (15.0-51.0); MEAN CORPUSCULAR HEMOGLOBIN 30.8 pg (29.0-33.0); MEAN CORPUSCULAR HGB CONC 34.3 g/dl (32.0-37.0); MEAN CORPUSCULAR VOLUME 89.9 fl (82.0-101.0); MEAN PLATELET VOLUME 7.6 fl (7.4-10.4); MONOCYTE # 0.8 10^3/ul (0.3-0.9); MONOCYTES % 13.5 % (0.0-11.0); NEUTROPHIL # 3.1 10^3/ul (1.6-7.5); NEUTROPHILS % 55.9 % (39.0-77.0); PLATELET COUNT 185 10^3/UL (140-440); RED BLOOD COUNT 3.86 10^6/ul (4.70-6.10); RED CELL DISTRIBUTION WIDTH 16.6 % (11.5-14.5); UNCORRECTED WBC 5.6 10^3/ul (4.8-10.8); WHITE BLOOD COUNT 5.6 10^3/ul (4.8-10.8)
[2016-12-23 06:05] LABS: POTASSIUM 3.4 mmol/L (3.5-5.1)
[2016-12-23 06:07] LABS: CREATININE 0.76 mg/dl (0.61-1.24)
[2016-12-23 06:08] LABS: CALCIUM 8.6 mg/dl (8.4-10.2)
[2016-12-23 06:54] LABS: CONDITION 1; LH ANALYZER COMMENTS 1
[2016-12-23 07:06] VITALS: BP 133/99; RESP 18
[2016-12-23] MEDS: MULTIVITAMINS 10 ML, THIAMINE 100 MG, FOLIC ACID 1 MG in SOD CHLORIDE 0.9% 1,000 ML IVPB SCH (08:56)
[2016-12-23] MEDS: LORAZEPAM 2 MG INJ IV PRN (08:58)
[2016-12-23] MEDS: CHLORDIAZEPOXIDE 25 MG CAP PO SCH ×3 (08:59→20:00)
[2016-12-23] MEDS: AL HYDROX/MG HYDROX/SIMETH 30 ML CUP PO SCH ×3 (08:59→20:00)
[2016-12-23] MEDS ORDERED: OXYCODONE/ACETAMINOPHEN (5/325) TAB PO PRN (09:00)
[2016-12-23] MEDS: HEPARIN 5,000 UNIT/0.5 ML SYG SC SCH ×2 (09:11→20:04)
--- NOTE | 2016-12-23 09:15 | PN ---
Date/Time of Note Date/Time of Note DATE: 12/23/16 TIME: 09:12 Assessment/Plan VTE Prophylaxis VTE Prophylaxis Intervention: heparin Lines/Catheters IV Catheter Type (from Nrs): Peripheral IV Urinary Cath still in place: No Assessment/Plan Assessment/Plan A 41-year-old male who once again comes in with abdominal pain secondary to alcoholic pancreatitis. 1. Abdominal pain secondary to alcoholic pancreatitis. - continue with NPO, IVF, morphine only for pain, trend lipase - awaiting repeat lipase levels, GI c /s 2. Alcohol intoxication. Put him on Librium with banana bag; also Ativan p.r.n. 3. Gastrointestinal prophylaxis: PPI. 4. Deep venous thrombosis prophylaxis: Heparin subcutaneously. dispo - f/u lipase levels, wean off of pain medications, social work consult, consult to pain management this progress note took greater than 30 minutes to complete Subjective 24 Hr Interval Summary Free Text/Dictation Patient complains of pain not being adequately controlled. He states that he usually receives certain medications. He wants his GI doctor, Dr. Sherwood, to see him. I spoke to him in regards to his chronic alcoholism, and his cause of his recurrent pancreatitis. Otherwise spoke to him about the care plan. 15 minutes spent. Exam/Review of Systems Vital Signs Vitals Vital Signs Date Time Temp Pulse Resp B/P Pulse Ox O2 Delivery O2 Flow Rate FiO2 12/23/16 07:06 99.2 96 18 133/99 96 12/22/16 20:00 Room Air Intake and Output 12/22/16 12/22/16 12/23/16 15:00 23:00 07:00 Intake Total 400 ml 1011.2 ml 1000 ml Output Total 950 ml Balance 400 ml 61.2 ml 1000 ml Exam Gen Corina: mild distress 2/2 to abdominal pain, AAOx4 - able to sleep comfortably HEENT: NC/AT, PERRLA, EOMI, no pharyngeal erythema, no tonsillar exudates, no lymphadenopathy, no JVD, no carotid bruits NECK: supple, no thyromegaly THORAX: symmetrical, no obvious deformities CV: S1S2, RRR, no M/G/R Lungs: CTAB no W/C/R/R Abd: soft, NT/ND, +BS, no rebound, no guarding, neg HSM EXT: no edema, no ecchymosis, no clubbing, FROM Neuro: CN II-XII grossly intact, no focal deficits Psych: fair mood and affect Skin: C/D/I Results Result Diagram: 12/23/1652912/23/16 0530 Results 24 hrs Laboratory Tests Test 12/23/16 05:30 Anion Gap 16 Basophils # 0.0 Basophils % 0.3 Blood Morphology Comment Blood Urea Nitrogen 6 L Calcium Level 8.6 Carbon Dioxide Level 26 Chloride Level 100 Creatinine 0.76 Eosinophils # 0.1 Eosinophils % 1.8 Glucose Level 92 Hematocrit 34.7 L Hemoglobin 11.9 L Lymphocytes # 1.6 Lymphocytes % 28.5 Mean Corpuscular Hemoglobin 30.8 Mean Corpuscular Hemoglobin Concent 34.3 Mean Corpuscular Volume 89.9 Mean Platelet Volume 7.6 Monocytes # 0.8 Monocytes % 13.5 H Neutrophils # 3.1 Neutrophils % 55.9 Nucleated Red Blood Cells # 0.0 Nucleated Red Blood Cells % 0.0 Platelet Count 185 Potassium Level 3.4 L Red Blood Count 3.86 L Red Cell Distribution Width 16.6 H Sodium Level 139 White Blood Count 5.6 Medications Medications Current Medications Ondansetron HCl (Zofran Inj) 4 mg Q6H PRN IV NAUSEA AND/OR VOMITING; Start 12/21 at 13:30 Acetaminophen (Tylenol Tab) 650 mg Q6H PRN PO PAIN LEVEL 1-3 OR FEVER; Start at 13:30 Docusate Sodium (Colace) 100 mg Q12H PRN PO CONSTIPATION; Start 12/21/16 at 13: 30 Magnesium Hydroxide (Milk Of Mag) 30 ml DAILY PRN PO CONSTIPATION; Start at 13:30 Sodium Biphosphate/ Sodium Phosphate (Fleet Enema) 133 ml DAILY PRN [place] CONSTIPATION; Start 12/21/16 at 13:30 Pantoprazole (Protonix Iv) 40 mg DAILY@06 IV Last administered on 12/23/16 05: 00; Admin Dose 40 MG; Start 12/22/16 at 06:00 Heparin Sodium (Porcine) 5000 unit 5,000 unit Q12 SC Last administered on 20:53; Admin Dose 5,000 UNIT; Start 12/21/16 at 21:00 Sodium Chloride (NS) 1,000 ml @ 100 mls/hr Q10H IV Last administered on 05:00; Admin Dose 100 MLS/HR; Start 12/21/16 at 13:21 Hydralazine HCl (Apresoline) 10 mg Q6H PRN IV ELEVATED BLOOD PRESSURE; Start at 13:30 Clonidine (Catapres) 0.1 mg Q6H PRN PO ELEVATED BLOOD PRESSURE Last administered on 12/21/16 15:09; Admin Dose 0.1 MG; Start 12/21/16 at 13:30 Nitroglycerin (Nitroglycerin (Sl Tab) 0.4 Mg) 1 tab Q5M PRN SL ANGINA; Start at 13:30 Al Hydrox/Mg Hydrox/Simethicone (Mag-Al Plus) 10 ml TID PO Last administered on 12/22/16 20:53; Admin Dose 10 ML; Start 12/21/16 at 21:00 Chlordiazepoxide 50 mg 50 mg TID PO Last administered on 12/22/16 20:53; Admin Dose 50 MG; Start 12/21/16 at 13:45 Multivitamins/ Thiamine HCl/ Folic Acid/Sodium Chloride (Mvi-12 Adult/ Vitamin B1/Folic Acid/NS) 1,011.2 ml @ 125 mls/ hr DAILY@09 IVPB Last administered on 12/22/16 09:02; Admin Dose 125 MLS/HR; Start 12/22/16 at 09:00 Lorazepam (Ativan) 1 mg Q1H PRN IV ANXIETY Last administered on 12/22/16 06:50 ; Admin Dose 1 MG; Start 12/21/16 at 14:30 Morphine Sulfate (morphine) 4 mg Q4H PRN IV SEVERE PAIN LEVEL 7-10; Start at 10:11 Oxycodone/ Acetaminophen (Percocet (5/ 325)) 1 tab Q6H PRN PO PAIN; Start at 09:00 SHELTON REYES MD Dec 23, 2016 09:15
[2016-12-23] MEDS ORDERED: morphine 4 MG/ML VIAL IV PRN (10:11)
[2016-12-23] MEDS: HYDROmorphONE 2 MG/ML SYG IV PRN ×3 (15:52→23:52)
[2016-12-23 17:06] LABS: BARBITURATES Negative (NEGATIVE); BENZODIAZEPINES Positive (NEGATIVE); CANNABINOIDS Positive (NEGATIVE); COCAINE Positive (NEGATIVE)
[2016-12-23 17:07] LABS: OPIATES POSITIVE (NEGATIVE)
[2016-12-23 19:41] VITALS: BP 142/90; RESP 20
[2016-12-24] MEDS: SOD CHLORIDE 0.9% 1,000 ML IV SCH ×2 (01:04→11:21)
[2016-12-24] MEDS: LORAZEPAM 2 MG INJ IV PRN (02:19)
[2016-12-24] MEDS: HYDROmorphONE 2 MG/ML SYG IV PRN ×3 (04:02→12:01)
[2016-12-24] MEDS: PANTOPRAZOLE 40 MG INJ IV SCH (05:55)
[2016-12-24 06:09] LABS: HEMOGLOBIN 11.2 g/dl (14.0-18.0); MEAN CORPUSCULAR HEMOGLOBIN 30.7 pg (29.0-33.0); MEAN CORPUSCULAR HGB CONC 33.8 g/dl (32.0-37.0); MEAN CORPUSCULAR VOLUME 90.9 fl (82.0-101.0); MEAN PLATELET VOLUME 7.6 fl (7.4-10.4); MONOCYTES % 20.7 % (0.0-11.0); PLATELET COUNT 231 10^3/UL (140-440); RED BLOOD COUNT 3.64 10^6/ul (4.70-6.10); RED CELL DISTRIBUTION WIDTH 16.5 % (11.5-14.5); UNCORRECTED WBC 4.4 10^3/ul (4.8-10.8); WHITE BLOOD COUNT 4.4 10^3/ul (4.8-10.8)
[2016-12-24 06:19] LABS: BASOPHILS % 0.6 % (0.0-2.0); CONDITION 1; EOSINOPHILS # 0.1 10^3/ul (0.0-0.5); EOSINOPHILS % 2.5 % (0.0-7.0); LH ANALYZER COMMENTS 1; LYMPHOCYTES # 1.4 10^3/ul (0.8-2.9); LYMPHOCYTES % 30.8 % (15.0-51.0); MONOCYTE # 0.9 10^3/ul (0.3-0.9); NEUTROPHILS % 45.4 % (39.0-77.0); SUSPECT 1
[2016-12-24 06:21] LABS: POTASSIUM 3.3 mmol/L (3.5-5.1)
[2016-12-24 06:23] LABS: CREATININE 0.68 mg/dl (0.61-1.24)
[2016-12-24 06:24] LABS: CALCIUM 8.6 mg/dl (8.4-10.2)
[2016-12-24] MEDS: AL HYDROX/MG HYDROX/SIMETH 30 ML CUP PO SCH ×2 (09:04→13:00)
[2016-12-24] MEDS: MULTIVITAMINS 10 ML, THIAMINE 100 MG, FOLIC ACID 1 MG in SOD CHLORIDE 0.9% 1,000 ML IVPB SCH (09:04)
[2016-12-24] MEDS: CHLORDIAZEPOXIDE 25 MG CAP PO SCH ×2 (09:04→13:07)
[2016-12-24] MEDS: HEPARIN 5,000 UNIT/0.5 ML SYG SC SCH (09:12)
[2016-12-24] MEDS ORDERED: POTASSIUM CHLORIDE (SR) 20 MEQ TAB PO STA (09:19)
[2016-12-24] MEDS ORDERED: LORA-441 PO (09:30)
[2016-12-24] MEDS ORDERED: PANT40TA4 PO (09:30)
[2016-12-24] MEDS ORDERED: CHLO25CA9 PO (09:30)
--- NOTE | 2016-12-24 09:31 | PDOCDIS ---
Discharge Instructions DIAGNOSIS Discharge Diagnosis: ETOH induced pancreatitis CONDITION Patient Condition: Stable HOME CARE INSTRUCTIONS: Diet Instructions: Regular ACTIVITY: Activity Restrictions: Slowly Increase Activity Rest between Activity FOLLOW UP/APPOINTMENTS Appointments follow up with alcohol and drug rehab. follow up primary care physician in one week. follow up with GI as needed. OTHER ORDERS: Other Orders: ETOH induced pancreatitis - refrain from drinking. continue with librium taper as prescribed. SHELTON REYES MD Dec 24, 2016 09:31
--- NOTE | 2016-12-24 10:27 | DS ---
DATE OF ADMISSION: 12/21/2016 DATE OF DISCHARGE: 12/24/2016 DISCHARGE DIAGNOSES: 1. Alcohol-induced pancreatitis. 2. Alcohol intoxication. 3. Drug abuse. HOSPITAL COURSE: This is a 41-year-old male with a past medical history of multiple admissions for pancreatitis secondary to alcohol abuse, history of gallstones, presented with abdominal pain for th e last 2 days. He was admitted to med/surg for further evaluation and treatment. Palliative care w as consulted at this time for pain management. Initial laboratory findings showed a white count 7.6 , H and H 15.4 and 45.6 with platelets of 313, current white count is 4.4, H and H 11.2 and 33.0 wit h platelets of 231. Chemistry initially had showed a sodium 143, potassium 3.7, chloride 99, carbon dioxide 23, anion gap 25, BUN and creatinine 7 and 0.92, glucose 125. Hemoglobin A1c of 5.3, alkal ine phosphatase 219, albumin 4.8. AST and ALT were 44 and 29 respectively. Triglycerides 162, chol esterol 205, LDL 136, lipase was 902. TSH is 0.568 and trended to 924 for lipase and then 218 for l ast lipase. Current potassium was 3.3 which was repleted. Toxicology was positive for opioids, kevin zodiazepines, cocaine and cannabinoids. Urine showed 3+ ketones, negative nitrites, bilirubin 1+, m oderate epithelial cells, 1+ hemoglobin. IMAGING: Gallbladder ultrasound was completed showing: Limited examination due to patient's consta nt movement during examination as per technologist, hepatomegaly with hepatic steatosis, suggestion of tiny stones in the gallbladder, ____ some mild extrahepatic bile duct dilatation. Recommend arpit elation with LFTs to exclude cholestasis. Right renal cystic lesion that cannot be confidently mary lou acterized as a simple cyst on this examination; however, this lesion is not clearly identified on MR I on 10/08/2016. This is doubtful of clinical significance. Otherwise, on day of discharge the pat ient's overall vital signs have been stable, he was afebrile, started eating a diet, a lipase trend down. Pain was improved. No other acute complaints. I spoke to the patient about the care plan. DISPOSITION: Home. CONDITION: Stable. DISCHARGE MEDICATIONS: Include: 1. Percocet 5/325 q.6h. p.r.n. for pain. 2. Librium 25 mg p.o. t.i.d. taper. 3. Ativan 0.5 mg p.o. b.i.d. for agitation. 4. Protonix 40 mg p.o. daily. FOLLOWUP: The patient will follow up with his primary care physician in 1 week. Will follow up wit h GI as needed and follow up with sober living as well as rehabilitation for drug and alcohol abuse at this time, as per social work. Patient and consultants were made aware of this and agree with the plan. Coordination of discharge greater than 40 minutes. Dictated By: SHELTON LINDSAY/LEA Conf#: [id number] DID#: [id number]
[2016-12-24 11:56] LABS: ANISOCYTOSIS 1+
== END 2016-12-24 14:45 | disposition home or self-care (01) | DRG 440 ==
LOC: FTE 05:14 → MS2 12:47
PROVIDERS: ADMIT Hospitalist; ATTEND Hospitalist
DX: K85.20 Alcohol induced acute pancreatitis without necrosis or infection (principal); F14.10 Cocaine abuse, uncomplicated; F10.229 Alcohol dependence with intoxication, unspecified; K86.0 Alcohol-induced chronic pancreatitis
CPT/HCPCS: 36415; 76705; 80048; 80053; 80061; 80307; 81001; 81003; 83036; 83690; 83735; 84100; 84439; 84443; 85025; 93005; 96374; 96375; 96376; C9113; J0360; J1170; J1885; J2060; J2270; J2405; J3411; J7030

== ENCOUNTER 2019-02-06 20:09 | Emergency (ER) | payer OTHER ==
[~2019-02-06] VITALS: Ht 190.5 cm; Wt 127.0 kg
[~2019-02-06 20:09] MED LIST changes: +CHLO25CA9 PO; -FAMO40TA52 PO; -HYDR-906 PO; -IBUP-1542 PO; +LORA-441 PO; -MAG355OR14 PO; -ONDA4TAB14 PO; -ONDA4TAB8 PO; -OXYC-209 PO
[2019-02-06 20:14] VITALS: BP 133/81; PULSE 89; RESP 20; Ht 190.5 cm; Wt 127.0 kg
[2019-02-06] MEDS ORDERED: DIPHTH/TET/ACEL PERTUSS (ADULT) 0.5 ML VIAL IM* ONE (22:30)
[2019-02-06] MEDS ORDERED: LIDOCAINE 1% (MPF) 5 ML VIAL INJ ONE (22:30)
[2019-02-06] MEDS ORDERED: CEPH-443 PO (23:01)
--- NOTE | 2019-02-07 02:25 | ERD ---
ER Documentation Chief Complaint Chief Complaint LEFT DORSAL FOREARM LAC WITH NEWSPAPER CORRESPONDENT HPI 43-year-old male patient with a past medical history of diabetes presents to the ED stating that his left forearm was cut with a box brander as he was trying to hold up the blinds for his friend who was cutting the blinds. States that he actually got caught on his left forearm superficially. Denies any fever, chills, increased redness, increased swelling, loss sensation, loss of range of motion. Patient reports that he takes metformin. States that he has full range of motion. ROS All systems reviewed and are negative except as per history of present illness. Medications Home Meds Active Scripts Cephalexin* (Keflex*) 500 Mg Capsule, 500 MG PO QID for 7 Days, CAP Prov:MAYELNI ALVARADO PA-C 02/06/19 Lorazepam* (Ativan*) 0.5 Mg Tablet, 0.5 MG PO BID PRN for AGITATION/ANXIETY, #15 TAB Prov:SHELTON REYES MD 12/24/16 Chlordiazepoxide* (Chlordiazepoxide*) 25 Mg Capsule, 50 MG PO TID for 5 Days, #15 CAP Prov:SHELTON REYES MD 12/24/16 Pantoprazole (Protonix) 40 Mg Tabec, 40 MG PO DAILY, #30 TAB Prov:SHELTON REYES MD 12/24/16 Allergies Allergies: Coded Allergies: No Known Allergy (Unverified , 12/04/16) PMhx/Soc History of Surgery: Yes (left heel, left wrist, deviated nasal septum) Anesthesia Reaction: No Hx Neurological Disorder: No Hx Respiratory Disorders: No Hx Cardiac Disorders: No Hx Psychiatric Problems: No Hx Miscellaneous Medical Probl: Yes (alcholism, anxiety) Hx Alcohol Use: Yes (last drink yesterday) Hx Substance Use: No Hx Tobacco Use: Yes Smoking Status: Light tobacco smoker FmHx Family History: No diabetes, No coronary disease Physical Exam Vitals Vital Signs Date Temp Pulse Resp B/P (MAP) Pulse Ox O2 O2 Flow FiO2 Time Delivery Rate 02/06/19 97.9 89 20 133/81 98 20:14 (98) Physical Exam Const: [id number], well-nourished. In no acute distress. Head: Atraumatic, normocephalic Eyes: Normal Conjunctiva without injection ENT: Normal external ear, nose and mouth. Neck: Full range of motion. No meningismus. Resp: Clear to auscultation bilaterally. No wheezing, rhonchi, rales, or crackles. No accessory muscle use. No retractions. Cardio: Regular rate and rhythm, no murmurs Skin: No petechiae or rashes Back: No midline tenderness. No CVA tenderness. Ext: No cyanosis, or edema. Cap refill less than 2 seconds. Distal pulses intact bilaterally. Superificial 1.5 cm laceration noted on the volar aspect of patient's forearm. Linear. No surrounding erythema, edema, purulent discharge. No fluctuance or induration. Neur: Awake and alert. Normal gait and coordination. Muscle strength 5/5. Sensation intact bilaterally. Psych: Normal Mood and Affect Results 24 hrs Current Medications Medications Dose Sig/Mary Start Time Status Last (Trade) Ordered Route PRN Stop Time Admin Dose Reason Admin Diphtheria/ 0.5 ml ONCE ONCE 02/06/19 DC 02/06/19 Tetanus/Acell IM* 22:30 23:14 Pertussis 02/06/19 22:31 (Adacel) Lidocaine 5 ml ONCE ONCE 02/06/19 Cancel (Xylocaine INJ 22:30 1% (Mpf)) 02/06/19 22:31 Procedures/MDM 43-year-old male patient with no significant past medical history is right- handed presents to ED complaining of a laceration on the left dorsal arm. Patient is afebrile and nontoxic-appearing. Patient gave consent to perform laceration repair. Laceration Repair by me: Anesthesia: None Location: Left forearm Tendon/Joint/Nerves: No injury Foreign body: None detected after copious irrigation and exploration Technique: Dermabond Complexity: No subcutaneous sutures/mucosal repair/edge excision Post Closure Length: [1.5] cm Patient's bleeding was easily controlled in the department and there is no indication of anemia. Patient is neurovascularly intact. No evidence of compartment syndrome, neurologic injury, vascular injury, open joint, tendon laceration, or foreign body. Patient is appropriate for outpatient follow up. 48 hour wound check. Scar minimization instructions given. Instructed patient to return for suture removal in 7-10 days. Keflex was prescribed to patient for infection prevention. Instructed patient to return to the ED sooner for any worsening symptoms. Follow up with primary care physician in 1-2 days. Patient's questions were answered. Patient understood and agreed with discharge plan. Diagnosis: Laceration Discharge medications: Keflex Follow up with primary care physician in 1-2 days. Instructed patient to return to the ED sooner for any worsening symptoms. Patient's questions were answered. Patient is hemodynamically stable. Patient understood and agreed with discharge plan. Patient discharged stable. Disclaimer: Inadvertent spelling and grammatical errors are likely due to EHR/dictation software use and do not reflect on the overall quality of patient care. Also, please note that the electronic time recorded on this note does not necessarily reflect the actual time of the patient encounter. Departure Diagnosis: Primary Impression: Laceration Patient Instructions: Laceration, Extremity (Skin Glue) Referrals: TARUN SAWANT MD (PCP) [facility] YOU HAVE RECEIVED A MEDICAL SCREENING EXAM AND THE RESULTS INDICATE THAT YOU DO NOT HAVE A CONDITION THAT REQUIRES URGENT TREATMENT IN THE EMERGENCY DEPARTMENT. FURTHER EVALUATION AND TREATMENT OF YOUR CONDITION CAN WAIT UNTIL YOU ARE SEEN IN YOUR DOCTORS OFFICE WITHIN THE NEXT 1-2 DAYS. IT IS YOUR RESPONSIBILITY TO MAKE AN APPOINTMENT FOR FOLOW-UP CARE. IF YOU HAVE A PRIMARY DOCTOR --you should call your primary doctor and schedule an appointment IF YOU DO NOT HAVE A PRIMARY DOCTOR YOU CAN CALL OUR PHYSICIAN REFERRAL HOTLINE AT IF YOU CAN NOT AFFORD TO SEE A PHYSICIAN YOU CAN CHOSE FROM THE FOLLOWING [facility] [address] [facility]. [facility] [address] [facility] [facility] [address] [facility] [address] [facility] [facility] [address] [facility]. [facility]. [address] [facility]. [facility] YOU HAVE RECEIVED A MEDICAL SCREENING EXAM AND THE RESULTS INDICATE THAT YOU DO NOT HAVE A CONDITION THAT REQUIRES URGENT TREATMENT IN THE EMERGENCY DEPARTMENT. FURTHER EVALUATION AND TREATMENT OF YOUR CONDITION CAN WAIT UNTIL YOU ARE SEEN IN YOUR DOCTORS OFFICE WITHIN THE NEXT 1-2 DAYS. IT IS YOUR RESPONSIBILITY TO MAKE AN APPOINTMENT FOR FOLOW-UP CARE. IF YOU HAVE A PRIMARY DOCTOR --you should call your primary doctor and schedule and appointment IF YOU DO NOT HAVE A PRIMARY DOCTOR YOU CAN CALL OUR PHYSICIAN REFERRAL HOTLINE AT . IF YOU CAN NOT AFFORD TO SEE A PHYSICIAN YOU CAN CHOSE FROM THE FOLLOWING [facility] INSTITUTIONS: [facility] [address] [place] [address] [facility] [address] [place] [address] L[facility] + [facility] [address] [place] [address] [facility] Additional Instructions: Call your primary care doctor TOMORROW for an appointment during the next 2-3 days.See the doctor sooner or return here if your condition worsens before your appointment time. Follow up in 2 days in your clinic for wound check. MAYELIN ALVARADO PA-C Feb 07, 2019 02:25
== END 2019-02-06 23:21 | disposition home or self-care (01) ==
LOC: FTE 20:09
DX: S51.812A Laceration without foreign body of left forearm, initial encounter (principal); F17.210 Nicotine dependence, cigarettes, uncomplicated; W26.8XXA Contact with other sharp object(s), not elsewhere classified, initial encounter; Y92.9 Unspecified place or not applicable; Z23 Encounter for immunization
CPT/HCPCS: 12001; 90471; 90715; Z7502

== ENCOUNTER 2019-06-09 20:36 | Emergency (ER) | payer OTHER ==
[~2019-06-09] VITALS: Ht 189.2 cm; Wt 138.3 kg
[~2019-06-09 20:36] MED LIST changes: +CEPH-443 PO
[2019-06-09 20:42] VITALS: Ht 189.2 cm; Wt 138.3 kg
--- NOTE | 2019-06-09 23:10 | ERD ---
ER Documentation Chief Complaint Chief Complaint LEFT FOOT SWELLING/PAIN; NO KNOWN INJ; HX DM2 HPI 43-year-old male with past medical history of poorly controlled diabetes type 2, hypertension who presents with complaint of left lower extremity swelling and pain. States she has noticed that both his legs have become more edematous with the left side being slightly more swollen. Reports a small ulceration just lateral of calf of left leg. Denies any discharge from that area. He has not follow-up with PMD recently and has not seen a diabetic pulmonary specialist. He ot [facility] denies fevers, chills, shortness of breath, dyspnea, IV drug use, or any other concerning symptoms. ROS All systems reviewed and are negative except as per history of present illness. Medications Home Meds Active Scripts Sulfamethoxazole/Trimethoprim* (Bactrim Ds* Tablet) 1 Each Tablet, 1 TAB PO BID for 7 Days, #14 TAB Prov:HOLLEY DIAZ-C 06/09/19 Cephalexin* (Keflex*) 500 Mg Capsule, 500 MG PO QID for 7 Days, CAP Prov:HOLLEY DIAZ-C 06/09/19 Cephalexin* (Keflex*) 500 Mg Capsule, 500 MG PO QID for 7 Days, CAP Prov:MAYELIN ALVARADO-C 02/06/19 Lorazepam* (Ativan*) 0.5 Mg Tablet, 0.5 MG PO BID PRN for AGITATION/ANXIETY, #15 TAB Prov:SHELTON REYES MD 12/24/16 Chlordiazepoxide* (Chlordiazepoxide*) 25 Mg Capsule, 50 MG PO TID for 5 Days, #15 CAP Prov:SHELTON REYES MD 12/24/16 Pantoprazole (Protonix) 40 Mg Tabec, 40 MG PO DAILY, #30 TAB Prov:SHELTON REYES MD 12/24/16 Allergies Allergies: Coded Allergies: No Known Allergy (Unverified , 12/04/16) PMhx/Soc History of Surgery: Yes (left heel, left wrist, deviated nasal septum) Anesthesia Reaction: No Hx Neurological Disorder: No Hx Respiratory Disorders: No Hx Cardiac Disorders: No Hx Psychiatric Problems: No Hx Miscellaneous Medical Probl: Yes (alcholism, anxiety) Hx Alcohol Use: Yes (last drink yesterday) Hx Substance Use: No Hx Tobacco Use: Yes Smoking Status: Current every day smoker FmHx Family History: diabetes Physical Exam Vitals Vital Signs Date Temp Pulse Resp B/P (MAP) Pulse Ox O2 O2 Flow FiO2 Time Delivery Rate 06/09/19 98.1 98 19 161/94 96 20:42 (116) Physical Exam I have reviewed the triage vital signs. Const: Well nourished, well developed, appears stated age Eyes: PERRL, no conjunctival injection HENT: NCAT, Neck supple without meningismus CV: RRR, Warm, well-perfused extremities RESP: CTAB, Unlabored respiratory effort GI: soft, non-tender, non-distended, no masses MSK: No gross deformities appreciated Skin: Bilateral lower extremities with nonpitting edema, chronic changes, left lower extremity with small ulceration not appearing infected, no significant erythema or swelling, 5 out of 5 strength, no calf tenderness or cords, SI LT throughout, poor hygiene Neuro: grossly non focal Psych: Appropriate mood and affect. Results 24 hrs Laboratory Tests Test 06/10/19 00:35 Bedside Glucose 146 mg/dL Procedures/MDM 43-year-old male with diabetes type 2, obesity, hypertension who presents with complaint of lower extremity swelling. Given her risk factors and poorly controlled diabetes will elect to treat proactively with a short course of antibiotics in case small ulceration becomes infected. Patient is high risk. With regards to his bilateral lower extremity swelling it may be related to his diabetes and chronic changes. I have low suspicion for any other acute process warranting further emergent care or work-up other than stated below. Patient advised to follow-up with PMD and establish care to better manage his diabetes. ED course: Bilateral extremity duplex without acute finding DISPOSITION PLAN: We discussed follow up with the patient's primary care doctor within 24 to 48 hours. Patient counseled regarding my diagnostic impression and care plan. Prior to discharge all questions answered. Pt agrees with treatment plan and understands strict return precautions. Precautionary instructions provided including instructions to return to the ER if not improving or for any worsening or changing symptoms or concerns. Disclaimer: Inadvertent spelling and grammatical errors are likely due to EHR/dictation software use and do not reflect on the overall quality of patient care. Also, please note that the electronic time recorded on this note does not necessarily reflect the actual time of the patient encounter. Departure Diagnosis: Primary Impression: Leg swelling Condition: Stable JEUDINE,GETHO PA-C Jun 09, 2019 23:10
[2019-06-09] MEDS ORDERED: CEPH-443 PO (23:48)
[2019-06-09] MEDS ORDERED: SULF1TAB31 PO (23:48)
[2019-06-10 01:06] VITALS: BP 168/91; PULSE 87; RESP 16
== END 2019-06-10 01:07 | disposition home or self-care (01) ==
LOC: FTE 20:36
DX: M79.89 Other specified soft tissue disorders (principal); F17.210 Nicotine dependence, cigarettes, uncomplicated; I10 Essential (primary) hypertension; E11.9 Type 2 diabetes mellitus without complications
CPT/HCPCS: 82962; 93970; Z7502; 99284